=== PATIENT | male | born 1975 | race Caucasian/White ===

== ENCOUNTER 2017-05-28 09:41 | Emergency (ER) | payer SELFPAY ==
--- NOTE | 2017-05-28 10:13 | ERNOTE ---
Upper Extremity HPI - Narrative Date of Service: 05/28/17 - General Extremities Pain Location: hand: right Time Seen by Provider: 05/28/17 10:11 Source: patient, RN notes reviewed Exam Limitations: no limitations - Immun/Allergies/Home Medications Immunizations: IMMUNIZATION HX Immunizations Up to Date Yes History of Influenza Vaccine No Hx Pneumococcal Vaccination No Allergies/Adverse Reactions: Allergies Allergy/AdvReac Type Severity Reaction Status Date / Time NSAIDS (Non-Steroidal Allergy Verified 05/28/17 09:53 Anti-Inflamma ibuprofen [From Motrin] AdvReac Unknown Verified 05/28/17 09:53 Home Medications: HOME MEDICATIONS NK [No Home Medication] 05/28/17 [Last Taken Unknown] - Pain Score Pain Score #1 Pain Score: 7 - History of Present Illness Narrative: 42 year old male presents to the ED for swelling in the dorsum of the right hand that began yesterday and has been gradually worsening. 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 He has had a "spider bite" in the past on his abdomen and believes that this may be the cause of his current symptoms. He reports a small, erythematous spot on the dorsum of the hand. He denies any symptoms of systemic illness. He has not taken anything for his symptoms. Date (Duration): 05/27/17 Method of Injury: Reports: no apparent injury Modifying Factors - (Improves): Reports: rest Modifying Factors - (Worsens): Reports: movement Associated Symptoms: Denies: tingling, weakness, numbness distally Prior Treament: Denies: recently seen, similar symptoms before Review of Systems - Review of Systems Constitutional: Absent: recent illness, fever, chills, malaise EYE: Present: no symptoms reported ENT: Present: no symptoms reported Respiratory: Absent: shortness of breath, cough Cardiology: Absent: chest pain, palpitations Gastrointestinal/Abdominal: Absent: nausea, vomiting Genitourinary: Present: no symptoms reported Musculoskeletal: Absent: joint pain, joint swelling Skin: Present: lesions, lumps. Absent: rash, change in color Neurological: Absent: headache, dizziness/light-headedness, weakness, numbness, tingling Endocrine: Present: no symptoms reported Hematologic/Lymphatic: Absent: easy bruising, easy bleeding Psych: Present: no symptoms reported - Patient's Past Medical History Patient History - Medical: No pertinent hx Patient History - Cardiac/Respiratory: No pertinent hx Patient History - Cancer: No Hx of Cancer Patient History - Surgical Procedures: Back Surgery, Vasectomy Patient History - Other: None - Social History Living Situations: home Psych History: No pertinent hx Smoking Status: Current every day smoker Cigarettes Packs Per Day: 0.5 Alcohol Use: none Drug Use: none - Immunizations Immunizations Up to Date: Yes Hx Pneumococcal Vaccination: No History of Influenza Vaccine: No Physical Exam - Physical Exam General Appearance: Present: wd/wn, alert, no apparent distress Head Exam: Present: normal inspection Neck: Present: normal inspection, nontender, supple, full range of motion Respiratory: Present: no respiratory distress, normal breath sounds, no accessory muscle use, lungs clear Cardiovascular/Chest: Present: regular rate, rhythm, no murmur, normal peripheral pulses Peripheral Pulses: N=norm/S=strong/W=weak/B=bound/A=absent: Radial (R): Strong Extremity Exam: Present: normal range of motion, extremity edema - Dorsum of right hand. Absent: joint redness, joint swelling Neurological Exam: Present: alert, oriented, normal mood/affect, no motor/ sensory deficits Skin Exam: Present: normal color, warm/dry, other - Edematous area to right hand without warmth or redness, small erythematous macule on dorsum of hand does not appear to be an insect bite ED Progress - Results and Orders Patient's Lab Results:: I have reviewed the patient's lab results. - Vital Signs Patient's Vital Signs:: I have reviewed the patient's vital signs. Vital Signs: Vital Signs 05/28/17 05/28/17 09:47 10:00 Temperature 36.9 C Pulse Rate 97 94 Respiratory 16 16 Rate Blood Pressure 127/83 124/82 O2 Sat by Pulse 99 99 Oximetry - X-Ray X-Ray #1 X-Ray: hand - Right Interpretation: Reviewed by me X-ray Comments: Soft tissue swelling without any osseous abnormality noted - Progress/Reassessment Chief Complaint: Hand Injury/Pain Progress:: Unchanged Departure Clinical Impression: Localized swelling on right hand - Departure Disposition: Home self-care Condition: Good Instructions: Repetitive Strain Injuries, Form - Excuse from Work, School, or Physical Activity Additional Instructions: Wear RADHA wrap for support/compression Elevate hand above your heart whenever able Use ice several times a day Take Tylenol for pain Return for fever, redness, or other concerns as needed Referrals: Valentin Haider MD [Primary Care Provider] -
[2017-05-28 10:50] LABS: Hematocrit 46.3 % (42.0-52.0); Hemoglobin 16.5 gm/dL (13.5-18.0); Mean Cell Volume 91.1 fl (78-100); Mean Corpuscular Hemoglobin 32.5 pg (27-31); Mean Corpuscular Hgb Conc 35.6 g/dl (32-36); Mean Platelet Volume 10.3 fl (6.0-9.5); Neutrophil # 2.9 K/mm3 (1.3-6.0); Neutrophil % 49.2 % (42-75.0); Platelet Count 207 K/mm3 (150-450); Red Blood Count 5.08 M/mm3 (4.7-6.0); Red Cell Distribution Width 12.1 % (11.5-14.0); White Blood Count 5.9 K/mm3 (4.0-10.5)
[2017-05-28 11:03] LABS: Albumin * 3.8 gm/dl (3.4-5.0); Anion Gap 12.5 mmol/L (6.8-13.8); BUN/Creatinine Ratio 11.8 (9.0-21.6); Bilirubin, Total 0.6 mg/dL (0.0-1.1); CRP 0.6 mg/dL (0.0-0.9); Calcium * 9.2 mg/dL (7.9-10.9); Carbon Dioxide 26.9 mmol/L (24-32.6); Potassium 4.4 mmol/L (3.4-4.6); Total Protein 7.6 gm/dL (6.2-8.2); Uric Acid 4.9 mg/dL (2.6-7.2)
[2017-05-28 12:05] VITALS: BP 122/78
== END 2017-05-28 11:52 | disposition home or self-care (01) ==
LOC: ER 09:41
DX: F17.210 Nicotine dependence, cigarettes, uncomplicated; R22.31 Localized swelling, mass and lump, right upper limb